=== PATIENT | male | born 1980 | race Caucasian/White ===

== ENCOUNTER 2024-09-20 18:59 | Inpatient (IN) | payer OTHER ==
[2024-09-20 19:41] VITALS: BMI 20.2
[2024-09-20] MEDS ORDERED: NICOTINE POLACRILEX 2 MG LOZENGE BC PRN (19:57)
[2024-09-20] MEDS ORDERED: MAGNESIUM HYDROX 2400MG/30ML ORAL SUSPENSION 30 ML CUP PO PRN (19:57)
[2024-09-20] MEDS ORDERED: POLYETHYLENE GLYCOL (HEALTHYLAX) 3350 17 GM PACKET PO PRN (19:57)
[2024-09-20] MEDS ORDERED: NALOXONE (NARCAN) HCL 4 MG/0.1 ML SPRAY NS PRN (19:57)
[2024-09-20] MEDS ORDERED: IBUPROFEN 600 MG TABLET (FP) PO PRN (19:57)
[2024-09-20] MEDS ORDERED: IBUPROFEN 400 MG TABLET (FP) PO PRN (19:57)
[2024-09-20] MEDS ORDERED: ACETAMINOPHEN 325 MG TABLET (FP) PO PRN (19:57)
[2024-09-20] MEDS ORDERED: BENZONATATE 200 MG CAPSULE PO PRN (19:57)
[2024-09-20] MEDS ORDERED: NICOTINE POLACRILEX 2 MG GUM BUC PRN (19:57)
[2024-09-20] MEDS ORDERED: guaiFENesin 600 MG TABLET.ER (FP) PO PRN (19:57)
[2024-09-20] MEDS ORDERED: LOPERAMIDE HCL 2 MG CAPSULE PO PRN (19:57)
[2024-09-20] MEDS ORDERED: BENZOCAINE/MENTHOL (CHLORASEPTIC ) LOZENGE MM PRN (19:57)
[2024-09-20] MEDS ORDERED: amLODIPine BESYLATE 5 MG TABLET (FP) ONE (22:00)
[2024-09-20] MEDS ORDERED: MELATONIN 5 MG TABLETS ONE (22:00)
[2024-09-20] MEDS: THIAMINE 100 MG TABLET PO SCH (22:19)
[2024-09-20] MEDS: amLODIPine BESYLATE 5 MG TABLET (FP) PO ONE (22:19)
[2024-09-20] MEDS: MELATONIN 5 MG TABLETS PO SCH (22:19)
[2024-09-20] MEDS ORDERED: TUBERCULIN PPD 5 TU/0.1ML SYRINGE (IN PATIENT USE ONLY) ID ONE ×2 (23:30→23:58)
[2024-09-21] MEDS: cloNIDine HCL 0.1 MG TABLET PO ONE (00:19)
[2024-09-21 09:53] LABS: POTASSIUM 4.2 mmol/L (3.5-5.1)
[2024-09-21 09:58] LABS: HEMATOCRIT 37.2 % (35.4-49); HEMOGLOBIN 11.9 GM/dL (11.7-16.9); MCH 23.5 pg (25.7-33.7); MEAN CELL VOLUME 73.2 fl (80-96); MEAN PLT VOLUME 9.1 fl (7.5-11.1); PLATELET COUNT 224 10^3/uL (134-434); RBC 5.08 M/mm3 (4.00-5.60); RDW 14.9 % (11.9-15.9); WHITE BLOOD COUNT 4.7 K/mm3 (4.0-10.0)
[2024-09-21 10:13] LABS: CALCIUM 8.6 mg/dL (8.5-10.1)
[2024-09-21 10:14] LABS: BILIRUBIN,TOTAL 0.4 mg/dL (0.2-1)
[2024-09-21] MEDS: PRENATAL VITAMINS W/ FOLIC ACID TABLET (FP) PO SCH (10:14)
[2024-09-21 10:17] LABS: CREATININE 0.9 mg/dL (0.55-1.3)
[2024-09-21 11:19] LABS: SYPHILIS W/ RPR CONF NON-REACTIVE (NONREACTIVE)
[2024-09-21 12:55] LABS: URINE APPEARANCE CLEAR; URINE BILIRUBIN NEGATIVE (NEGATIVE); URINE COLOR YELLOW; URINE GLUCOSE (UA) NEGATIVE (NEGATIVE); URINE KETONE NEGATIVE (NEGATIVE); URINE LEUK ESTERASE NEGATIVE (NEGATIVE); URINE NITRITE NEGATIVE (NEGATIVE); URINE PROTEIN NEGATIVE (NEGATIVE); URINE UROBILINOGEN 0.2 mg/dL (0.2-1.0)
[2024-09-21] MEDS: TUBERCULIN PPD 5 TU/0.1ML SYRINGE (IN PATIENT USE ONLY) ID ONE (13:49)
[2024-09-23 20:49] VITALS: RESP 16
[2024-09-24] MEDS: MAG HYDROX/AL HYDROX/SIMETH 30 ML UNIT-DOSE CUP PO PRN (01:17)
[2024-09-24] MEDS: ONDANSETRON *ODT* 4 MG TABLET SL PRN (01:33)
[2024-09-25 09:03] VITALS: BP 118/70; PULSE 85; TEMP 98.3
== END 2024-09-25 15:28 | disposition left against medical advice (07) | DRG 770 ==
LOC: YASAS 18:59 → Y3NR 22:19 → Y3E 09-21 13:50
PROVIDERS: ADMIT Psychiatry & Neurology Pain Medicine; ATTEND Psychiatry & Neurology Pain Medicine
PROC: HZ42ZZZ Group Counseling for Substance Abuse Treatment, Cognitive-Behavioral (ICD-10-PCS; principal; 2024-09-20)
DX: F14.10 Cocaine abuse, uncomplicated (principal); F12.20 Cannabis dependence, uncomplicated; F17.210 Nicotine dependence, cigarettes, uncomplicated; R26.89 Other abnormalities of gait and mobility; I69.851 Hemiplegia and hemiparesis following other cerebrovascular disease affecting right dominant side; Z99.89 Dependence on other enabling machines and devices
CPT/HCPCS: 36415; 80053; 80305; 80307; 81003; 85027; 86780; 86803; 87811; 93005; 93010; Q0162